=== PATIENT | male | born 1975 | race Hispanic/Latino ===

== ENCOUNTER 2019-10-13 16:44 | Emergency (ER) | payer OTHER, SELFPAY ==
[2019-10-14 12:12] LABS: SARS-CoV-2 MS2 Positive; SARS-CoV-2 N Gene Negative; SARS-CoV-2 S Gene Negative; SARS-CoV-2 by NAA Not Detected (NotDetected); SARS-CoV-2 orf1ab Negative
== END 2019-10-13 17:04 | disposition home or self-care (01) ==
LOC: ERS 16:44
DX: U07.1 COVID-19 (principal); E11.9 Type 2 diabetes mellitus without complications
CPT/HCPCS: 87635; 99283; U0003

== ENCOUNTER 2020-02-06 17:10 | Inpatient (IN) | payer SELFPAY ==
--- NOTE | 2020-02-06 17:59 | RAD ---
Portable frontal chest radiograph: 02/06/2020 COMPARISON: None available HISTORY: Cough with shortness of breath FINDINGS: There are patchy areas of groundglass opacity in the perihilar regions, the medial left bas e, and the lateral right upper lobe region. No focal consolidation or alveolar edema. IMPRESSION: Scattered areas of interstitial opacity with superimposed groundglass disease. Findings a re suspicious for atypical infectious pneumonitis, such as Covid 19.
[2020-02-06 18:00] LABS: #Basophils 0.1 thou/uL (0.0-0.2); #Lymphocytes 0.3 thou/uL (1.20-3.40); #Monocytes 0.2 thou/uL (0.11-0.59); #Neutrophils 5.9 thou/uL (1.40-6.50); %Basophils 1.1 % (0.0-1.0); %Eosinophils 0.1 % (0.0-10.0); %Lymphocytes 3.8 % (21.0-51.0); %Monocytes 3.4 % (0.0-10.0); %Neutrophils 91.4 % (42.0-75.0); Hemoglobin 16.2 g/dL (14.0-18.0); Mean Corpuscular Hemoglobin 32.5 pg (27.0-31.0); Mean Corpuscular Volume 95.7 fL (78.0-98.0); Mean Platelet Volume 9.3 fL (7.4-10.4); Platelet Count 188 thou/uL (130-400); RBC Distribution Width 11.6 % (11.5-14.5); Red Blood Cell (RBC) Count 4.99 mill/uL (4.70-6.10); White Blood Cell (WBC) Count 6.5 thou/uL (4.8-10.8)
[2020-02-06 18:22] LABS: ALT (SGPT) 36 U/L (8-55); AST (SGOT) 28 U/L (5-34); Albumin 3.5 g/dL (3.5-5.0); Alkaline Phosphatase 72 U/L (40-110); Anion Gap 15 mmol/L (10-20); BUN (Urea Nitrogen) 19 mg/dL (8.9-20.6); Bilirubin, Total 0.6 mg/dL (0.2-1.2); Calc. Creatinine Clearance 0 mL/min (70-130); Calcium 8.3 mg/dL (7.8-10.44); Carbon Dioxide 25 mmol/L (22-29); Chloride 102 mmol/L (98-107); Estimated GFR-MDRD Greater than 90; Globulin 3.7 g/dL (2.4-3.5); Glucose 307 mg/dL (70-105); Potassium 4.5 mmol/L (3.5-5.1); Protein, Total 7.2 g/dL (6.0-8.3); Sodium 137 mmol/L (136-145)
[2020-02-06] MEDS ORDERED: Ibuprofen 200 MG TAB ONE (19:10)
[2020-02-06] MEDS ORDERED: Acetaminophen 500 MG TAB ONE (19:10)
[2020-02-06] MEDS ORDERED: Acetaminophen 650 MG Suppository PR PRN (19:21)
[2020-02-06] MEDS ORDERED: Calcium Carbonate 500 MG ChewTAB PO PRN (19:21)
[2020-02-06] MEDS ORDERED: Ondansetron ODT 4 MG TAB PO PRN (19:21)
[2020-02-06] MEDS ORDERED: Ondansetron PF 4 MG/2 ML Vial IVP PRN (19:21)
[2020-02-06] MEDS ORDERED: Dexamethasone 10 MG/ML VIAL ONE (19:26)
--- NOTE | 2020-02-06 19:26 | PDOC.HHP ---
Hospitalist HPI - History of Present Illness cough History of Present Illness: Case of an 44y/o male with pmhx of DM who comes to hospital complaining of sob and cough. patient refers he was on his usual state of health until 2 weeks ago when he started with cough chills and general malaise. symptoms kept progressing and recently started with dyspnea. He states he produces some white phlegm occasionally. He states he had positive coronavirus in September, but that he completely recovered and had f/u negative results. patient denies any fever abdominal pain diarrhea or changes in smell, does refers food has a bland taste, has no know covid exposure. at the ed patient was found on respiratory failure with 02 sats in the 88s at [facility] with a cxr with an atypical patter concerning for covid 19 Hospitalist ROS - Review of Systems All other systems reviewed; all pertinent +/- noted in HPI/Subj Hospitalist History - Past Surgical History Past Surgical History: reports: no pertinent history - Family History Family History: reports: diabetes mellitus - Social History Smoking Status: Never smoker Alcohol: reports: Occassional Drugs: reports: none Living Situation: With Family - Exam General Appearance: NAD, awake alert Eye: PERRL, anicteric sclera ENT: normocephalic atraumatic, no oropharyngeal lesions Neck: supple, symmetric, no JVD, no thyromegaly Heart: RRR, no murmur, no gallops, no rubs Respiratory: CTAB, no wheezes, no rales, no ronchi, tachypneic Gastrointestinal: soft, non-tender, non-distended, normal bowel sounds Extremities: no cyanosis, no clubbing, no edema Skin: normal turgor, no lesions, no rashes Neurological: cranial nerve grossly intact, normal sensation to touch, no weakness Musculoskeletal: normal tone, normal strength, no muscle wasting Psychiatric: normal affect, normal behavior, A&O x 3 Hospitalist Results - Labs Result Diagrams: 02/06/20 17:49 02/06/20 17:49 Lab results: WBC 6.5 thou/uL (4.8-10.8) 02/06/20 17:49 Hgb 16.2 g/dL (14.0-18.0) 02/06/20 17:49 Hct 47.8 % (42.0-52.0) 02/06/20 17:49 MCV 95.7 fL (78.0-98.0) 02/06/20 17:49 Plt Count 188 thou/uL (130-400) 02/06/20 17:49 Neutrophils % 91.4 % (42.0-75.0) H 02/06/20 17:49 Sodium 137 mmol/L (136-145) 02/06/20 17:49 Potassium 4.5 mmol/L (3.5-5.1) 02/06/20 17:49 Chloride 102 mmol/L (98-107) 02/06/20 17:49 Carbon Dioxide 25 mmol/L (22-29) 02/06/20 17:49 BUN 19 mg/dL (8.9-20.6) 02/06/20 17:49 Creatinine 0.85 mg/dL (0.7-1.3) 02/06/20 17:49 Glucose 307 mg/dL (70-105) H 02/06/20 17:49 Calcium 8.3 mg/dL (7.8-10.44) 02/06/20 17:49 Total Bilirubin 0.6 mg/dL (0.2-1.2) 02/06/20 17:49 AST 28 U/L (5-34) 02/06/20 17:49 ALT 36 U/L (8-55) 02/06/20 17:49 Alkaline Phosphatase 72 U/L (40-110) 02/06/20 17:49 Troponin I Less than 0.010 ng/mL (< 0.028) 02/06/20 17:49 B-Natriuretic Peptide 48.4 pg/mL (0-100) 02/06/20 17:49 Serum Total Protein 7.2 g/dL (6.0-8.3) 02/06/20 17:49 Albumin 3.5 g/dL (3.5-5.0) 02/06/20 17:49 Hospitalist H&P A/P - Problem (1) Respiratory failure with hypoxia Code(s): J96.91 - RESPIRATORY FAILURE, UNSPECIFIED WITH HYPOXIA Status: Acute (2) Pneumonia due to COVID-19 virus Code(s): U07.1 - COVID-19; J12.89 - OTHER VIRAL PNEUMONIA Status: Acute (3) Diabetes Code(s): E11.9 - TYPE 2 DIABETES MELLITUS WITHOUT COMPLICATIONS Status: Acute - Plan Plan: 44y/o male with the state pmhx who presnte with symptoms concerning for covid 19 re- infection acute respiratory failure - 02 supplementation - likely due to atypical pneumonia possible covid 19 re infection covid 19 pneumonia - had covid 19 in september - cxr concerning for atypical pneumonia, including covid 19 - on rocephin + azithromycin - id consulted - decadron 6mg ivd - f/u cultures - f/u inflammation markers - dvt prophylaxis -isolation precautions - flu swab dm - uncontrolled - long acting insulin - acc+ ss
[2020-02-06] MEDS ORDERED: Dextrose 5% in Water 1,000 ML IV PRN (19:28)
[2020-02-06] MEDS ORDERED: Dextrose 50% Abboject 50 ML SYRINGE SLOW IVP PRN (19:28)
[2020-02-06] MEDS ORDERED: cefTRIAXone\\ROCEPHIN 1 GM in Sodium Chloride 0.9% 100 ML IVPB SCH (20:00)
[2020-02-06 20:45] LABS: SARS-CoV-2 NAA Rapid Test DETECTED (NotDetected)
[2020-02-06] MEDS ORDERED: Azithromycin 500 MG in Sodium Chloride 0.9% 250 ML 250 ML IVPB SCH ×2 (21:00→23:59)
[2020-02-07] MEDS: HumaLOG 300 UNITS/3 ML VIAL SC PRN ×5 (00:07→21:35)
[2020-02-07] MEDS: Insulin Glargine 10 UNITS in Pre-Filled Syringe SC SCH ×2 (00:07→21:34)
[2020-02-07 07:40] LABS: ALT (SGPT) 33 U/L (8-55); AST (SGOT) 23 U/L (5-34); Albumin 3.3 g/dL (3.5-5.0); Alkaline Phosphatase 70 U/L (40-110); Anion Gap 15 mmol/L (10-20); BUN (Urea Nitrogen) 20 mg/dL (8.9-20.6); Bilirubin, Total 0.5 mg/dL (0.2-1.2); CRP (Inflammatory) 6.27 mg/dL (= or < 0.5); Calc. Creatinine Clearance 119 mL/min (70-130); Calcium 8.4 mg/dL (7.8-10.44); Carbon Dioxide 24 mmol/L (22-29); Chloride 105 mmol/L (98-107); Estimated GFR-MDRD Greater than 90; Globulin 3.6 g/dL (2.4-3.5); Glucose 247 mg/dL (70-105); Potassium 4.4 mmol/L (3.5-5.1); Protein, Total 6.9 g/dL (6.0-8.3); Sodium 140 mmol/L (136-145)
[2020-02-07] MEDS: Enoxaparin Sodium 40 MG/0.4 ML SYRINGE SC SCH (08:55)
[2020-02-07] MEDS: Dexamethasone 4 mg/ml Vial SLOW IVP SCH (08:55)
[2020-02-07] MEDS: Acetaminophen 325 MG TAB PO PRN (08:56)
[2020-02-07] MEDS: Guaifenesin DM 100-10/5 ML UDCUP PO PRN ×4 (08:57→21:57)
[2020-02-07] MEDS ORDERED: Dexamethasone 6 MG in Sodium Chloride 0.9% 50 ML IVPB SCH (09:00)
[2020-02-07 09:35] LABS: Band 10 % (5-11); Hemoglobin 15.9 g/dL (14.0-18.0); Lymphocytes 3 % (21-51); MDiff Complete? YES; Mean Corpuscular HGB CONC 33.6 g/dL (32.0-36.0); Mean Corpuscular Volume 95.4 fL (78.0-98.0); Mean Platelet Volume 9.1 fL (7.4-10.4); Monocytes 2 % (0-10); Neutrophil 84 % (42-75); Platelet Count 187 thou/uL (130-400); Platelet Morphology Comment Appears Adequate; RBC Distribution Width 11.6 % (11.5-14.5); RBC Morphology Normal; Reactive Lymphocytes 1 % (0-10); Red Blood Cell (RBC) Count 4.96 mill/uL (4.70-6.10); White Blood Cell (WBC) Count 15.6 thou/uL (4.8-10.8)
--- NOTE | 2020-02-07 20:49 | CON ---
DATE OF CONSULTATION: 02/07/2020 REASON FOR CONSULTATION: COVID pneumonia. REASON FOR CONSULTATION: A 44-year-old with history of type 2 diabetes, who has had started coughing about 14 days ago, but he is really dyspneic for the past week with worsening cough. No headaches. No hemoptysis. No vomiting. No chest pain. No abdominal pain or diarrhea. No genitourinary symptoms. No joint symptoms. PAST MEDICAL HISTORY: Type 2 diabetes. PAST SURGICAL HISTORY: Negative. 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 No smoking history. ALLERGIES: NONE. CURRENT MEDICATIONS: 1. Azithromycin. 2. Rocephin. 3. Decadron. PHYSICAL EXAMINATION: VITAL SIGNS: He has been afebrile. He is now tachypneic 24 to 26 per minute, O2 saturations are 83 with 2 L nasal cannula. I went up the flow to 5 L and he went up to 86 and 87 max. GENERAL: He appears uncomfortable at rest. SKIN: No skin lesions. Peripheral IV access. He is voiding in the toilet and has a hard time going to the toilet because of dyspnea and cough. No lymphadenopathy. HEENT: Ocular movements conjugate. Oral cavity normal. NECK: Supple. LUNGS: With scattered inspiratory crackles up to half of right and left hemithorax. No wheezing. HEART: S1 and S2. Regular rate. No S3 or S4. ABDOMEN: Soft, not distended or tender. No ascites. No bladder distention. EXTREMITIES: No joint inflammatory activity. NEURO: Nonfocal. LABORATORY DATA: White cell count is up 15.6, hemoglobin 15, and platelets 187 with 10% bands. D-dimer 0.32. Ferritin 442. CRP 6.27. Albumin 3.3. Chest x-ray, diffuse bilateral infiltrates, typical of COVID. ASSESSMENT AND PLAN: Diabetes type 2 with moderate to severe COVID pneumonia. The patient needs to have probably high-flow oxygen administered. We will add remdesivir to his regimen. Continue Decadron and Lovenox prophylactic dose. Discontinue Rocephin and azithromycin. Monitor markers daily. Job ID: [id number]
[2020-02-07] MEDS ORDERED: REMDESIVIR (EUA) 200 MG in Sodium Chloride 0.9% 250 ML 210 ML IV SCH (21:00)
[2020-02-07] MEDS: HYDROcodone/Acetaminophen 5/325 mg Tablet PO PRN (21:33)
--- NOTE | 2020-02-07 21:38 | PDOC.HOSPP ---
- Subjective Encounter Date: 02/07/20 Subjective: Patient was seen and examined in bed. He had mild shortness of breath and occasional cough. Denied any chest pain or abdominal pain. - Objective Vital Signs & Weight: Vital Signs (12 hours) Temp Pulse Resp BP Pulse Ox 02/07/20 20:00 99.8 F H 66 18 117/68 96 02/07/20 15:50 98.6 F 61 24 H 119/69 96 02/07/20 12:35 98.6 F 71 21 H 134/72 100 Weight Admit Weight 146 lb 8 oz Weight 146 lb 8 oz I&O: 02/06/20 02/07/20 02/08/20 06:59 06:59 06:59 Intake Total 400 980 Balance 400 980 Result Diagrams: 02/07/20 07:08 02/07/20 07:08 Additional Labs: Accuchecks 02/07/20 02/07/20 02/07/20 21:18 17:20 11:45 POC Glucose 265 H 283 H 374 H 02/07/20 02/06/20 07:37 22:17 POC Glucose 274 H 318 H Hospitalist ROS - Medication Medications: Active Medications Generic Name Dose Route Start Last Admin Trade Name Freq PRN Reason Stop Dose Admin Acetaminophen 650 mg 02/06/20 19:21 02/07/20 08:56 Acetaminophen 325 Mg Tab PO 650 mg Q4H PRN Administration Headache/Fever/Mild Pain (1-3) Hydrocodone Bitart/Acetaminophen 1 tab 02/06/20 19:21 02/07/20 21:33 Hydrocodone/Acetaminophen 5/325 Mg Tablet PO 1 tab Q4H PRN Administration Moderate Pain (4-6) Dexamethasone 6 mg 02/07/20 09:00 02/07/20 08:55 Dexamethasone 4 Mg/Ml Vial SLOW IVP 6 mg DAILY BEATA Administration Enoxaparin Sodium 40 mg 02/07/20 09:00 02/07/20 08:55 Enoxaparin Sodium 40 Mg/0.4 Ml Syringe SC 40 mg 0900 BEATA Administration Guaifenesin/Dextromethorphan 15 ml 02/06/20 19:21 02/07/20 17:40 Guaifenesin Dm 100-10/5 Ml Udcup PO 15 ml Q4H PRN Administration Cough Insulin Glargine 10 units/ 0.1 mls @ 0 mls/hr 02/06/20 21:00 02/07/20 21:34 Miscellaneous Medication SC 0.1 mls HS BEATA Administration Remdesivir 200 mg/ Sodium 250 mls @ 250 mls/hr 02/07/20 21:00 02/07/20 21:33 Chloride IV 02/07/20 23:59 250 mls NOW BEATA Administration Insulin Human Lispro 0 units 02/06/20 19:28 02/07/20 17:42 Humalog 300 Units/3 Ml Vial SC 4 unit .MILD SLIDING SCALE PRN Administration Mild Correctional Scale Insulin Human Lispro 0 units 02/06/20 23:50 02/07/20 21:35 Humalog 300 Units/3 Ml Vial SC 3 unit .BEDTIME SLIDING SC PRN Administration Bedtime Correctional Scale - Exam General Appearance: awake alert General - other findings: Mild distress Heart: RRR, no murmur, no gallops, no rubs Respiratory - other findings: Occasional crackles bilaterally Gastrointestinal: soft, non-tender, non-distended, normal bowel sounds Extremities: no cyanosis, no clubbing, no edema Neurological: cranial nerve grossly intact, no focal deficits Psychiatric: normal affect, A&O x 3 Hosp A/P - Plan 44-year-old male patient with a history of type 2 diabetes who presents on account of worsening dyspnea for about a week. Initial evaluation shows chest x-ray suggestive of Covid with Covid test eventually turning positive. He notes having had 1 previous episode of Covid. Acute hypoxic respiratory failure Secondary to Covid pneumoniarecurrence Oxygen therapy as needed. Close monitoring. Pulmonology consult if deteriorates further. Pneumonia due to Covid Started on Lovenox and Decadronwe will continue Monitor ferritin, CRP daily ID following Diabetes mellitus No recent A1c on file Blood sugar normal control We will check A1c Monitor blood glucose Correctional dosing insulin for now. DVT prophylaxis Lovenox CODE STATUSfull code
[2020-02-08] MEDS: Guaifenesin DM 100-10/5 ML UDCUP PO PRN ×5 (02:33→21:12)
[2020-02-08 05:41] LABS: Hemoglobin A1c 10.9 % (4.0-6.0)
[2020-02-08 05:57] LABS: ALT (SGPT) 24 U/L (8-55); AST (SGOT) 22 U/L (5-34); Albumin 3.1 g/dL (3.5-5.0); Alkaline Phosphatase 72 U/L (40-110); Anion Gap 12 mmol/L (10-20); BUN (Urea Nitrogen) 17 mg/dL (8.9-20.6); Bilirubin, Total 0.7 mg/dL (0.2-1.2); CRP (Inflammatory) 8.59 mg/dL (= or < 0.5); Calc. Creatinine Clearance 113 mL/min (70-130); Calcium 8.4 mg/dL (7.8-10.44); Carbon Dioxide 28 mmol/L (22-29); Chloride 104 mmol/L (98-107); Estimated GFR-MDRD Greater than 90; Globulin 3.6 g/dL (2.4-3.5); Glucose 294 mg/dL (70-105); Potassium 4.4 mmol/L (3.5-5.1); Protein, Total 6.7 g/dL (6.0-8.3); Sodium 140 mmol/L (136-145)
[2020-02-08 06:00] LABS: Band 7 % (5-11); Hemoglobin 15.2 g/dL (14.0-18.0); Lymphocytes 9 % (21-51); MDiff Complete? YES; Mean Corpuscular HGB CONC 32.8 g/dL (32.0-36.0); Mean Corpuscular Hemoglobin 31.4 pg (27.0-31.0); Mean Platelet Volume 9.6 fL (7.4-10.4); Monocytes 5 % (0-10); Neutrophil 79 % (42-75); Platelet Count 210 thou/uL (130-400); RBC Distribution Width 11.6 % (11.5-14.5); Red Blood Cell (RBC) Count 4.84 mill/uL (4.70-6.10); White Blood Cell (WBC) Count 14.4 thou/uL (4.8-10.8)
[2020-02-08] MEDS: HumaLOG 300 UNITS/3 ML VIAL SC PRN ×4 (06:02→21:13)
[2020-02-08] MEDS: Dexamethasone 4 mg/ml Vial SLOW IVP SCH (07:26)
[2020-02-08] MEDS: Enoxaparin Sodium 40 MG/0.4 ML SYRINGE SC SCH (07:26)
[2020-02-08] MEDS: Acetaminophen 325 MG TAB PO PRN (07:58)
--- NOTE | 2020-02-08 15:45 | PDOC.HOSPP ---
- Subjective Encounter Date: 02/08/20 Subjective: Patient was seen and examined in bed. He is laying comfortably on 5 L oxygen. He has had intermittent coughing spells but however no chest pain. No significant events overnight. - Objective Vital Signs & Weight: Vital Signs (12 hours) Temp Pulse Resp BP BP Pulse Ox 02/08/20 11:55 98.1 F 58 L 26 H 120/71 98 02/08/20 07:26 98.5 F 56 L 23 H 115/70 94 L 02/08/20 03:49 98.6 F 56 L 18 114/70 94 L Weight Admit Weight 146 lb 8 oz Weight 144 lb 14.4 oz I&O: 02/07/20 02/08/20 02/09/20 06:59 06:59 06:59 Intake Total 400 1350 Output Total 700 Balance 400 650 Result Diagrams: 02/08/20 05:15 02/08/20 05:15 Additional Labs: Accuchecks 02/08/20 02/08/20 02/07/20 11:21 05:42 21:18 POC Glucose 274 H 284 H 265 H 02/07/20 17:20 POC Glucose 283 H Hospitalist ROS - Medication Medications: Active Medications Generic Name Dose Route Start Last Admin Trade Name Freq PRN Reason Stop Dose Admin Acetaminophen 650 mg 02/06/20 19:21 02/08/20 07:58 Acetaminophen 325 Mg Tab PO 650 mg Q4H PRN Administration Headache/Fever/Mild Pain (1-3) Hydrocodone Bitart/Acetaminophen 1 tab 02/06/20 19:21 02/07/20 21:33 Hydrocodone/Acetaminophen 5/325 Mg Tablet PO 1 tab Q4H PRN Administration Moderate Pain (4-6) Dexamethasone 6 mg 02/07/20 09:00 02/08/20 07:26 Dexamethasone 4 Mg/Ml Vial SLOW IVP 6 mg DAILY BEATA Administration Enoxaparin Sodium 40 mg 02/07/20 09:00 02/08/20 07:26 Enoxaparin Sodium 40 Mg/0.4 Ml Syringe SC 40 mg 0900 BEATA Administration Guaifenesin/Dextromethorphan 15 ml 02/06/20 19:21 02/08/20 11:23 Guaifenesin Dm 100-10/5 Ml Udcup PO 15 ml Q4H PRN Administration Cough Insulin Glargine 10 units/ 0.1 mls @ 0 mls/hr 02/06/20 21:00 02/07/20 21:34 Miscellaneous Medication SC 0.1 mls HS BEATA Administration Insulin Human Lispro 0 units 02/06/20 19:28 02/08/20 11:24 Humalog 300 Units/3 Ml Vial SC 4 unit .MILD SLIDING SCALE PRN Administration Mild Correctional Scale Insulin Human Lispro 0 units 02/06/20 23:50 02/07/20 21:35 Humalog 300 Units/3 Ml Vial SC 3 unit .BEDTIME SLIDING SC PRN Administration Bedtime Correctional Scale - Exam General Appearance: awake alert Heart: RRR, no murmur, no gallops, no rubs, normal peripheral pulses Respiratory - other findings: Occasional wheezing bilaterally. On 5 L oxygen Gastrointestinal: soft, non-tender, non-distended, normal bowel sounds Extremities: no cyanosis, no clubbing, no edema Neurological: cranial nerve grossly intact, no focal deficits Psychiatric: normal affect, A&O x 3 Hosp A/P - Plan 44-year-old male patient with a history of type 2 diabetes who presents on account of worsening dyspnea for about a week. Initial evaluation shows chest x-ray suggestive of Covid with Covid test eventually turning positive. He notes having had 1 previous episode of Covid. Acute hypoxic respiratory failure Secondary to Covid pneumoniarecurrence Currently stable on 5 L of oxygen Close monitoring. Pulmonology consult if deteriorates further. Pneumonia due to Covid Started on Lovenox and Decadronwe will continue Monitor ferritin, CRP daily ID following Diabetes mellitus A1c 10.9 Monitor blood glucose Currently on glargine 15 units Correctional dosing insulin for now. DVT prophylaxis Lovenox CODE STATUSfull code
[2020-02-08] MEDS: REMDESIVIR (EUA) 100 MG in Sodium Chloride 0.9% 250 ML 230 ML IV SCH (21:11)
[2020-02-08] MEDS: Insulin Glargine 15 UNITS in Pre-Filled Syringe SC SCH (21:11)
[2020-02-09] MEDS: Acetaminophen 325 MG TAB PO PRN ×2 (01:46→12:20)
[2020-02-09 05:26] LABS: #Lymphocytes 1.7 thou/uL (1.20-3.40); #Monocytes 0.6 thou/uL (0.11-0.59); #Neutrophils 5.1 thou/uL (1.40-6.50); %Basophils 0.3 % (0.0-1.0); %Eosinophils 0.2 % (0.0-10.0); %Lymphocytes 22.7 % (21.0-51.0); %Monocytes 8.2 % (0.0-10.0); %Neutrophils 68.6 % (42.0-75.0); Hemoglobin 15.3 g/dL (14.0-18.0); Mean Corpuscular HGB CONC 33.8 g/dL (32.0-36.0); Mean Corpuscular Hemoglobin 32.1 pg (27.0-31.0); Mean Corpuscular Volume 95.1 fL (78.0-98.0); Mean Platelet Volume 9.2 fL (7.4-10.4); Platelet Count 241 thou/uL (130-400); RBC Distribution Width 11.5 % (11.5-14.5); Red Blood Cell (RBC) Count 4.75 mill/uL (4.70-6.10); White Blood Cell (WBC) Count 7.5 thou/uL (4.8-10.8)
[2020-02-09] MEDS: Guaifenesin DM 100-10/5 ML UDCUP PO PRN ×2 (05:50→17:56)
[2020-02-09 05:54] LABS: ALT (SGPT) 26 U/L (8-55); AST (SGOT) 21 U/L (5-34); Alkaline Phosphatase 62 U/L (40-110); Anion Gap 14 mmol/L (10-20); BUN (Urea Nitrogen) 21 mg/dL (8.9-20.6); Bilirubin, Total 0.6 mg/dL (0.2-1.2); Calc. Creatinine Clearance 132 mL/min (70-130); Calcium 8.4 mg/dL (7.8-10.44); Carbon Dioxide 26 mmol/L (22-29); Chloride 103 mmol/L (98-107); Estimated GFR-MDRD Greater than 90; Globulin 3.5 g/dL (2.4-3.5); Glucose 244 mg/dL (70-105); Potassium 3.9 mmol/L (3.5-5.1); Protein, Total 6.5 g/dL (6.0-8.3); Sodium 139 mmol/L (136-145)
[2020-02-09] MEDS: HumaLOG 300 UNITS/3 ML VIAL SC PRN ×2 (06:37→17:55)
[2020-02-09] MEDS: Enoxaparin Sodium 40 MG/0.4 ML SYRINGE SC SCH (08:33)
[2020-02-09] MEDS: Dexamethasone 4 mg/ml Vial SLOW IVP SCH (08:33)
--- NOTE | 2020-02-09 12:15 | PDOC.HOSPP ---
- Subjective Encounter Date: 02/09/20 Encounter Time: 11:45 Subjective: feels better, gets short winded to ambulate in room is on nasal canula - Objective Vital Signs & Weight: Vital Signs (12 hours) Temp Pulse Resp BP BP BP Pulse Ox 02/09/20 10:58 56 L 18 130/76 100 02/09/20 08:45 98.7 F 55 L 20 117/68 100 02/09/20 03:57 98.7 F 50 L 18 128/75 97 Weight Admit Weight 146 lb 8 oz Weight 145 lb 1.6 oz I&O: 02/08/20 02/09/20 02/10/20 06:59 06:59 06:59 Intake Total 1350 1170 Output Total 700 350 Balance 650 820 Result Diagrams: 02/09/20 05:15 02/09/20 05:15 Additional Labs: Accuchecks 02/09/20 02/08/20 06:05 20:50 POC Glucose 273 H 342 H Hospitalist ROS - Medication Medications: Active Medications Generic Name Dose Route Start Last Admin Trade Name Freq PRN Reason Stop Dose Admin Acetaminophen 650 mg 02/06/20 19:21 02/09/20 01:46 Acetaminophen 325 Mg Tab PO 650 mg Q4H PRN Administration Headache/Fever/Mild Pain (1-3) Hydrocodone Bitart/Acetaminophen 1 tab 02/06/20 19:21 02/07/20 21:33 Hydrocodone/Acetaminophen 5/325 Mg Tablet PO 1 tab Q4H PRN Administration Moderate Pain (4-6) Dexamethasone 6 mg 02/07/20 09:00 02/09/20 08:33 Dexamethasone 4 Mg/Ml Vial SLOW IVP 6 mg DAILY BEATA Administration Enoxaparin Sodium 40 mg 02/07/20 09:00 02/09/20 08:33 Enoxaparin Sodium 40 Mg/0.4 Ml Syringe SC 40 mg 0900 BEATA Administration Guaifenesin/Dextromethorphan 15 ml 02/06/20 19:21 02/09/20 05:50 Guaifenesin Dm 100-10/5 Ml Udcup PO 15 ml Q4H PRN Administration Cough Remdesivir 100 mg/ Sodium 250 mls @ 250 mls/hr 02/08/20 21:00 02/08/20 21:11 Chloride IV 11/28/20 21:59 250 mls 2100 BEATA Administration Insulin Glargine 15 units/ 0.15 mls @ 0 mls/hr 02/08/20 21:00 02/08/20 21:11 Miscellaneous Medication SC 0.15 mls HS BEATA Administration Insulin Human Lispro 0 units 02/06/20 19:28 02/09/20 06:37 Humalog 300 Units/3 Ml Vial SC 4 unit .MILD SLIDING SCALE PRN Administration Mild Correctional Scale Insulin Human Lispro 0 units 02/06/20 23:50 02/08/20 21:13 Humalog 300 Units/3 Ml Vial SC 4 unit .BEDTIME SLIDING SC PRN Administration Bedtime Correctional Scale - Exam General Appearance: awake alert Eye: PERRL, anicteric sclera ENT: no oropharyngeal lesions, moist mucosa Neck: supple, no JVD Heart: RRR, no murmur Respiratory: no wheezes, no rales, rhonchi Gastrointestinal: soft, non-tender, non-distended, normal bowel sounds Extremities: no cyanosis, no edema Neurological: cranial nerve grossly intact, no focal deficits Psychiatric: normal affect, A&O x 3 Hosp A/P (1) Respiratory failure with hypoxia Code(s): J96.91 - RESPIRATORY FAILURE, UNSPECIFIED WITH HYPOXIA Status: Acute Qualifiers: Chronicity: acute Qualified Code(s): J96.01 - Acute respiratory failure with hypoxia (2) Pneumonia due to COVID-19 virus Code(s): U07.1 - COVID-19; J12.89 - OTHER VIRAL PNEUMONIA Status: Acute (3) Diabetes Code(s): E11.9 - TYPE 2 DIABETES MELLITUS WITHOUT COMPLICATIONS Status: Chronic Qualifiers: Diabetes mellitus type: type 2 Diabetes mellitus shelter insulin use: with 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
[2020-02-09] MEDS: REMDESIVIR (EUA) 100 MG in Sodium Chloride 0.9% 250 ML 230 ML IV SCH (20:30)
[2020-02-09] MEDS: Insulin Glargine 15 UNITS in Pre-Filled Syringe SC SCH (20:38)
[2020-02-09] MEDS: HYDROcodone/Acetaminophen 5/325 mg Tablet PO PRN (23:29)
[2020-02-10 05:20] LABS: #Monocytes 0.5 thou/uL (0.11-0.59); %Eosinophils 0.6 % (0.0-10.0); %Lymphocytes 26.7 % (21.0-51.0); %Monocytes 6.9 % (0.0-10.0); %Neutrophils 65.8 % (42.0-75.0); Hemoglobin 15.7 g/dL (14.0-18.0); Mean Corpuscular HGB CONC 32.4 g/dL (32.0-36.0); Mean Corpuscular Hemoglobin 30.5 pg (27.0-31.0); Mean Platelet Volume 9.4 fL (7.4-10.4); Platelet Count 286 thou/uL (130-400); RBC Distribution Width 11.4 % (11.5-14.5); Red Blood Cell (RBC) Count 5.16 mill/uL (4.70-6.10); White Blood Cell (WBC) Count 7.6 thou/uL (4.8-10.8)
[2020-02-10 05:47] LABS: ALT (SGPT) 40 U/L (8-55); AST (SGOT) 27 U/L (5-34); Alkaline Phosphatase 65 U/L (40-110); Anion Gap 11 mmol/L (10-20); BUN (Urea Nitrogen) 20 mg/dL (8.9-20.6); Bilirubin, Total 0.7 mg/dL (0.2-1.2); Calc. Creatinine Clearance 125 mL/min (70-130); Calcium 8.4 mg/dL (7.8-10.44); Carbon Dioxide 27 mmol/L (22-29); Chloride 101 mmol/L (98-107); Estimated GFR-MDRD Greater than 90; Globulin 3.6 g/dL (2.4-3.5); Glucose 229 mg/dL (70-105); Protein, Total 6.6 g/dL (6.0-8.3); Sodium 135 mmol/L (136-145)
[2020-02-10] MEDS: Enoxaparin Sodium 40 MG/0.4 ML SYRINGE SC SCH (07:44)
[2020-02-10] MEDS: Dexamethasone 4 mg/ml Vial SLOW IVP SCH (07:44)
[2020-02-10 12:03] VITALS: BMI 23.4
[2020-02-10] MEDS: HumaLOG 300 UNITS/3 ML VIAL SC PRN ×3 (12:04→21:05)
--- NOTE | 2020-02-10 15:00 | PDOC.HOSPP ---
- Subjective Encounter Date: 02/10/20 - Objective Vital Signs & Weight: Vital Signs (12 hours) Temp Pulse Resp BP Pulse Ox 02/10/20 11:04 98.3 F 83 16 102/61 98 02/10/20 08:39 98.7 F 77 20 107/67 94 L 02/10/20 03:10 98.0 F 55 L 18 122/79 96 Weight Admit Weight 146 lb 8 oz Weight 145 lb 1.6 oz I&O: 02/09/20 02/10/20 02/11/20 06:59 06:59 06:59 Intake Total 1170 480 Output Total 350 Balance 820 480 Result Diagrams: 02/10/20 05:11 02/10/20 05:11 Additional Labs: Accuchecks 02/10/20 02/10/20 02/09/20 10:14 05:38 16:13 POC Glucose 267 H 210 H 295 H Hospitalist ROS - Medication Medications: Active Medications Generic Name Dose Route Start Last Admin Trade Name Freq PRN Reason Stop Dose Admin Acetaminophen 650 mg 02/06/20 19:21 02/09/20 12:20 Acetaminophen 325 Mg Tab PO 650 mg Q4H PRN Administration Headache/Fever/Mild Pain (1-3) Hydrocodone Bitart/Acetaminophen 1 tab 02/06/20 19:21 02/09/20 23:29 Hydrocodone/Acetaminophen 5/325 Mg Tablet PO 1 tab Q4H PRN Administration Moderate Pain (4-6) Dexamethasone 6 mg 02/07/20 09:00 02/10/20 07:44 Dexamethasone 4 Mg/Ml Vial SLOW IVP 6 mg DAILY BEATA Administration Enoxaparin Sodium 40 mg 02/07/20 09:00 02/10/20 07:44 Enoxaparin Sodium 40 Mg/0.4 Ml Syringe SC 40 mg 0900 BEATA Administration Guaifenesin/Dextromethorphan 15 ml 02/06/20 19:21 02/09/20 17:56 Guaifenesin Dm 100-10/5 Ml Udcup PO 15 ml Q4H PRN Administration Cough Remdesivir 100 mg/ Sodium 250 mls @ 250 mls/hr 02/08/20 21:00 02/09/20 20:30 Chloride IV 02/11/20 21:59 250 mls 2100 BEATA Administration Insulin Glargine 15 units/ 0.15 mls @ 0 mls/hr 02/08/20 21:00 02/09/20 20:38 Miscellaneous Medication SC 0.15 mls HS BEATA Administration Insulin Human Lispro 0 units 02/06/20 19:28 02/10/20 12:04 Humalog 300 Units/3 Ml Vial SC 4 unit .MILD SLIDING SCALE PRN Administration Mild Correctional Scale Insulin Human Lispro 0 units 02/06/20 23:50 02/08/20 21:13 Humalog 300 Units/3 Ml Vial SC 4 unit .BEDTIME SLIDING SC PRN Administration Bedtime Correctional Scale - Exam General Appearance: awake alert ENT: normocephalic atraumatic Neck: supple, no JVD Heart: RRR Respiratory: normal chest expansion, no tachypnea Gastrointestinal: soft Extremities: no cyanosis, no clubbing Hosp A/P - Plan 02/08: 44-year-old male patient with a history of type 2 diabetes who presents on account of worsening dyspnea for about a week. Initial evaluation shows chest x-ray suggestive of Covid with Covid test eventually turning positive. He notes having had 1 previous episode of Covid. Acute hypoxic respiratory failure Secondary to Covid pneumoniarecurrence Currently stable on 5 L of oxygen Close monitoring. Pulmonology consult if deteriorates further. Pneumonia due to Covid Started on Lovenox and Decadronwe will continue Monitor ferritin, CRP daily ID following Diabetes mellitus A1c 10.9 Monitor blood glucose Currently on glargine 15 units Correctional dosing insulin for now. DVT prophylaxis Lovenox CODE STATUSfull code 02/09: The patient denies any new complaints today. He saturating well on supplemental oxygen. Continue dexamethasone and remdesivir. Continue Lovenox. Monitor LFTs daily.
[2020-02-10] MEDS: REMDESIVIR (EUA) 100 MG in Sodium Chloride 0.9% 250 ML 230 ML IV SCH (20:06)
[2020-02-10] MEDS: Insulin Glargine 15 UNITS in Pre-Filled Syringe SC SCH (20:06)
[2020-02-11 05:19] LABS: #Eosinphils 0.1 thou/uL (0.0-0.7); #Lymphocytes 2.1 thou/uL (1.20-3.40); #Monocytes 0.6 thou/uL (0.11-0.59); #Neutrophils 3.8 thou/uL (1.40-6.50); %Basophils 0.4 % (0.0-1.0); %Eosinophils 1.8 % (0.0-10.0); %Lymphocytes 31.7 % (21.0-51.0); %Monocytes 9.1 % (0.0-10.0); %Neutrophils 57.2 % (42.0-75.0); Hemoglobin 14.8 g/dL (14.0-18.0); Mean Corpuscular HGB CONC 33.6 g/dL (32.0-36.0); Mean Corpuscular Hemoglobin 31.6 pg (27.0-31.0); Mean Platelet Volume 9.3 fL (7.4-10.4); Platelet Count 300 thou/uL (130-400); RBC Distribution Width 11.4 % (11.5-14.5); Red Blood Cell (RBC) Count 4.68 mill/uL (4.70-6.10); White Blood Cell (WBC) Count 6.7 thou/uL (4.8-10.8)
[2020-02-11 05:46] LABS: ALT (SGPT) 53 U/L (8-55); AST (SGOT) 37 U/L (5-34); Albumin 2.9 g/dL (3.5-5.0); Alkaline Phosphatase 59 U/L (40-110); Anion Gap 13 mmol/L (10-20); BUN (Urea Nitrogen) 19 mg/dL (8.9-20.6); Bilirubin, Total 0.8 mg/dL (0.2-1.2); Calc. Creatinine Clearance 121 mL/min (70-130); Calcium 8.1 mg/dL (7.8-10.44); Carbon Dioxide 26 mmol/L (22-29); Chloride 101 mmol/L (98-107); Estimated GFR-MDRD Greater than 90; Globulin 3.2 g/dL (2.4-3.5); Glucose 198 mg/dL (70-105); Potassium 3.6 mmol/L (3.5-5.1); Protein, Total 6.1 g/dL (6.0-8.3); Sodium 136 mmol/L (136-145)
[2020-02-11] MEDS: HumaLOG 300 UNITS/3 ML VIAL SC PRN ×3 (06:02→18:04)
[2020-02-11] MEDS: Dexamethasone 4 mg/ml Vial SLOW IVP SCH (07:55)
[2020-02-11] MEDS: Enoxaparin Sodium 40 MG/0.4 ML SYRINGE SC SCH (07:55)
[2020-02-11] MEDS ORDERED: Dextrose 50% Abboject 50 ML SYRINGE SLOW IVP PRN (13:34)
[2020-02-11] MEDS ORDERED: Dextrose 5% in Water 1,000 ML IV PRN (13:34)
--- NOTE | 2020-02-11 13:37 | PDOC.HOSPP ---
- Subjective Encounter Date: 02/11/20 - Objective Vital Signs & Weight: Vital Signs (12 hours) Temp Pulse Resp BP BP Pulse Ox 02/11/20 12:00 98.3 F 72 20 109/61 97 02/11/20 08:00 98.9 F 60 18 104/63 97 02/11/20 02:55 98.2 F 57 L 18 105/65 99 Weight Admit Weight 146 lb 8 oz Weight 145 lb 1.6 oz I&O: 02/10/20 02/11/20 02/12/20 06:59 06:59 06:59 Intake Total 1210 Output Total 0 Balance 1210 Result Diagrams: 02/11/20 04:56 02/11/20 04:56 Additional Labs: Accuchecks 02/11/20 02/10/20 02/10/20 11:56 20:19 16:23 POC Glucose 352 H 384 H 403 H Hospitalist ROS - Medication Medications: Active Medications Generic Name Dose Route Start Last Admin Trade Name Freq PRN Reason Stop Dose Admin Acetaminophen 650 mg 02/06/20 19:21 02/09/20 12:20 Acetaminophen 325 Mg Tab PO 650 mg Q4H PRN Administration Headache/Fever/Mild Pain (1-3) Hydrocodone Bitart/Acetaminophen 1 tab 02/06/20 19:21 02/09/20 23:29 Hydrocodone/Acetaminophen 5/325 Mg Tablet PO 1 tab Q4H PRN Administration Moderate Pain (4-6) Dexamethasone 6 mg 02/07/20 09:00 02/11/20 07:55 Dexamethasone 4 Mg/Ml Vial SLOW IVP 6 mg DAILY BEATA Administration Enoxaparin Sodium 40 mg 02/07/20 09:00 02/11/20 07:55 Enoxaparin Sodium 40 Mg/0.4 Ml Syringe SC 40 mg 0900 BEATA Administration Guaifenesin/Dextromethorphan 15 ml 02/06/20 19:21 02/09/20 17:56 Guaifenesin Dm 100-10/5 Ml Udcup PO 15 ml Q4H PRN Administration Cough Remdesivir 100 mg/ Sodium 250 mls @ 250 mls/hr 02/08/20 21:00 02/10/20 20:06 Chloride IV 02/11/20 21:59 250 mls 2100 BEATA Administration Insulin Glargine 15 units/ 0.15 mls @ 0 mls/hr 02/08/20 21:00 02/10/20 20:06 Miscellaneous Medication SC 0.15 mls HS BEATA Administration - Exam General Appearance: awake alert ENT: normocephalic atraumatic Neck: supple, no JVD Heart: RRR Respiratory: normal chest expansion, no tachypnea Gastrointestinal: soft Neurological: cranial nerve grossly intact Hosp A/P - Plan 02/08: 44-year-old male patient with a history of type 2 diabetes who presents on account of worsening dyspnea for about a week. Initial evaluation shows chest x-ray suggestive of Covid with Covid test eventually turning positive. He notes having had 1 previous episode of Covid. Acute hypoxic respiratory failure Secondary to Covid pneumoniarecurrence Currently stable on 5 L of oxygen Close monitoring. Pulmonology consult if deteriorates further. Pneumonia due to Covid Started on Lovenox and Decadronwe will continue Monitor ferritin, CRP daily ID following Diabetes mellitus A1c 10.9 Monitor blood glucose Currently on glargine 15 units Correctional dosing insulin for now. DVT prophylaxis Lovenox CODE STATUSfull code 02/09: The patient denies any new complaints today. He saturating well on supplemental oxygen. Continue dexamethasone and remdesivir. Continue Lovenox. Monitor LFTs daily. 02/10: The patient is currently on 3 L of oxygen. He saturating well. Continue dexamethasone and remdesivir. Increase sliding scale to aggressive and increase nightly Lantus to 20 units.
[2020-02-11] MEDS: Insulin Glargine 20 UNITS in Pre-Filled Syringe SC SCH (21:47)
[2020-02-11] MEDS: REMDESIVIR (EUA) 100 MG in Sodium Chloride 0.9% 250 ML 230 ML IV SCH (21:47)
[2020-02-12 05:52] LABS: ALT (SGPT) 83 U/L (8-55); AST (SGOT) 53 U/L (5-34); Albumin 2.9 g/dL (3.5-5.0); Alkaline Phosphatase 59 U/L (40-110); Anion Gap 12 mmol/L (10-20); BUN (Urea Nitrogen) 16 mg/dL (8.9-20.6); Bilirubin, Total 0.9 mg/dL (0.2-1.2); CRP (Inflammatory) 1.25 mg/dL (= or < 0.5); Calc. Creatinine Clearance 117 mL/min (70-130); Carbon Dioxide 24 mmol/L (22-29); Chloride 101 mmol/L (98-107); Estimated GFR-MDRD Greater than 90; Globulin 3.1 g/dL (2.4-3.5); Glucose 204 mg/dL (70-105); Potassium 3.9 mmol/L (3.5-5.1); Sodium 133 mmol/L (136-145)
[2020-02-12] MEDS: HumaLOG 300 UNITS/3 ML VIAL SC PRN ×4 (06:27→21:05)
[2020-02-12] MEDS: Dexamethasone 4 mg/ml Vial SLOW IVP SCH (09:26)
[2020-02-12] MEDS: Enoxaparin Sodium 40 MG/0.4 ML SYRINGE SC SCH (09:27)
--- NOTE | 2020-02-12 14:49 | PDOC.HOSPP ---
- Subjective Encounter Date: 02/12/20 - Objective Vital Signs & Weight: Vital Signs (12 hours) Temp Pulse Resp BP BP Pulse Ox 02/12/20 13:01 98 02/12/20 11:21 98.0 F 63 18 110/67 100 02/12/20 09:35 98.6 F 72 24 H 100/58 L 95 02/12/20 03:42 98.2 F 52 L 16 112/92 H 98 Weight Admit Weight 146 lb 8 oz Weight 145 lb 1.6 oz I&O: 02/11/20 02/12/20 02/13/20 06:59 06:59 06:59 Intake Total 1210 240 Output Total 0 275 Balance 1210 -35 Result Diagrams: 02/11/20 04:56 02/12/20 05:07 Additional Labs: Accuchecks 02/12/20 02/11/20 11:19 17:24 POC Glucose 318 H 264 H Hospitalist ROS - Medication Medications: Active Medications Generic Name Dose Route Start Last Admin Trade Name Freq PRN Reason Stop Dose Admin Acetaminophen 650 mg 02/06/20 19:21 02/09/20 12:20 Acetaminophen 325 Mg Tab PO 650 mg Q4H PRN Administration Headache/Fever/Mild Pain (1-3) Hydrocodone Bitart/Acetaminophen 1 tab 02/06/20 19:21 02/09/20 23:29 Hydrocodone/Acetaminophen 5/325 Mg Tablet PO 1 tab Q4H PRN Administration Moderate Pain (4-6) Dexamethasone 6 mg 02/07/20 09:00 02/12/20 09:26 Dexamethasone 4 Mg/Ml Vial SLOW IVP 6 mg DAILY BEATA Administration Enoxaparin Sodium 40 mg 02/07/20 09:00 02/12/20 09:27 Enoxaparin Sodium 40 Mg/0.4 Ml Syringe SC 40 mg 0900 BEATA Administration Guaifenesin/Dextromethorphan 15 ml 02/06/20 19:21 02/09/20 17:56 Guaifenesin Dm 100-10/5 Ml Udcup PO 15 ml Q4H PRN Administration Cough Insulin Glargine 20 units/ 0.2 mls @ 0 mls/hr 02/11/20 21:00 02/11/20 21:47 Miscellaneous Medication SC 0.2 mls HS BEATA Administration Insulin Human Lispro 0 units 02/11/20 13:34 02/12/20 12:41 Humalog 300 Units/3 Ml Vial SC 11 unit .AGGRESSIVE SLIDING PRN Administration Aggressive Correctional Scale - Exam General Appearance: awake alert ENT: normocephalic atraumatic Neck: supple, no JVD Heart: RRR Respiratory: normal chest expansion, no tachypnea Neurological: cranial nerve grossly intact, no focal deficits Hosp A/P - Plan 02/08: 44-year-old male patient with a history of type 2 diabetes who presents on account of worsening dyspnea for about a week. Initial evaluation shows chest x-ray suggestive of Covid with Covid test eventually turning positive. He notes having had 1 previous episode of Covid. Acute hypoxic respiratory failure Secondary to Covid pneumoniarecurrence Currently stable on 5 L of oxygen Close monitoring. Pulmonology consult if deteriorates further. Pneumonia due to Covid Started on Lovenox and Decadronwe will continue Monitor ferritin, CRP daily ID following Diabetes mellitus A1c 10.9 Monitor blood glucose Currently on glargine 15 units Correctional dosing insulin for now. DVT prophylaxis Lovenox CODE STATUSfull code 02/09: The patient denies any new complaints today. He saturating well on supplemental oxygen. Continue dexamethasone and remdesivir. Continue Lovenox. Monitor LFTs daily. 02/10: The patient is currently on 3 L of oxygen. He saturating well. Continue dexamethasone and remdesivir. Increase sliding scale to aggressive and increase nightly Lantus to 20 units. 02/11: The patient is saturating well on 2 L of oxygen. Continue IV dexamethasone. He will complete his remdesivir regimen today. We will monitor his response over the next 24 to 48 hours can plan to discharge him if he remains stable.
[2020-02-12] MEDS: Insulin Glargine 20 UNITS in Pre-Filled Syringe SC SCH (21:05)
[2020-02-13 06:14] LABS: ALT (SGPT) 87 U/L (8-55); AST (SGOT) 35 U/L (5-34); Alkaline Phosphatase 63 U/L (40-110); Anion Gap 10 mmol/L (10-20); BUN (Urea Nitrogen) 18 mg/dL (8.9-20.6); Bilirubin, Total 0.9 mg/dL (0.2-1.2); Calc. Creatinine Clearance 121 mL/min (70-130); Calcium 8.3 mg/dL (7.8-10.44); Carbon Dioxide 27 mmol/L (22-29); Chloride 101 mmol/L (98-107); Estimated GFR-MDRD Greater than 90; Globulin 3.4 g/dL (2.4-3.5); Glucose 215 mg/dL (70-105); Potassium 3.9 mmol/L (3.5-5.1); Protein, Total 6.4 g/dL (6.0-8.3); Sodium 134 mmol/L (136-145)
[2020-02-13] MEDS: HumaLOG 300 UNITS/3 ML VIAL SC PRN ×4 (06:31→21:49)
[2020-02-13] MEDS: Dexamethasone 4 mg/ml Vial SLOW IVP SCH (10:18)
[2020-02-13] MEDS: Enoxaparin Sodium 40 MG/0.4 ML SYRINGE SC SCH (10:18)
--- NOTE | 2020-02-13 14:39 | PDOC.HOSPP ---
- Subjective Encounter Date: 02/13/20 - Objective Vital Signs & Weight: Vital Signs (12 hours) Temp Pulse Resp BP BP Pulse Ox 02/13/20 12:00 98.3 F 66 16 111/62 96 02/13/20 08:00 98.2 F 58 L 15 112/66 96 02/13/20 04:35 98.1 F 54 L 19 105/70 99 Weight Admit Weight 146 lb 8 oz Weight 145 lb 1.6 oz I&O: 02/12/20 02/13/20 02/14/20 06:59 06:59 06:59 Intake Total 240 2120 Output Total 275 Balance -35 2119 Result Diagrams: 02/11/20 04:56 02/13/20 04:50 Additional Labs: Accuchecks 02/13/20 02/12/20 02/12/20 10:25 20:52 17:05 POC Glucose 331 H 332 H 280 H 02/11/20 02/09/20 02/09/20 19:12 20:37 10:52 POC Glucose 285 H 343 H 333 H 02/08/20 17:12 POC Glucose 327 H Hospitalist ROS - Medication Medications: Active Medications Generic Name Dose Route Start Last Admin Trade Name Freq PRN Reason Stop Dose Admin Acetaminophen 650 mg 02/06/20 19:21 02/09/20 12:20 Acetaminophen 325 Mg Tab PO 650 mg Q4H PRN Administration Headache/Fever/Mild Pain (1-3) Hydrocodone Bitart/Acetaminophen 1 tab 02/06/20 19:21 02/09/20 23:29 Hydrocodone/Acetaminophen 5/325 Mg Tablet PO 1 tab Q4H PRN Administration Moderate Pain (4-6) Dexamethasone 6 mg 02/07/20 09:00 02/13/20 10:18 Dexamethasone 4 Mg/Ml Vial SLOW IVP 6 mg DAILY BEATA Administration Enoxaparin Sodium 40 mg 02/07/20 09:00 02/13/20 10:18 Enoxaparin Sodium 40 Mg/0.4 Ml Syringe SC 40 mg 0900 BEATA Administration Guaifenesin/Dextromethorphan 15 ml 02/06/20 19:21 02/09/20 17:56 Guaifenesin Dm 100-10/5 Ml Udcup PO 15 ml Q4H PRN Administration Cough Insulin Glargine 20 units/ 0.2 mls @ 0 mls/hr 02/11/20 21:00 02/12/20 21:05 Miscellaneous Medication SC 0.2 mls HS BEATA Administration Insulin Human Lispro 0 units 02/11/20 13:34 02/13/20 12:18 Humalog 300 Units/3 Ml Vial SC 11 unit .AGGRESSIVE SLIDING PRN Administration Aggressive Correctional Scale Insulin Human Lispro 0 units 02/12/20 19:00 02/12/20 21:05 Humalog 300 Units/3 Ml Vial SC 4 unit .BEDTIME SLIDING SC PRN Administration BEDTIME SLIDING SCALE Protocol - Exam General Appearance: awake alert Neck: supple, no JVD Heart: RRR Respiratory: no tachypnea Gastrointestinal: soft Extremities: no cyanosis, no clubbing Hosp A/P - Plan 02/08: 44-year-old male patient with a history of type 2 diabetes who presents on account of worsening dyspnea for about a week. Initial evaluation shows chest x-ray suggestive of Covid with Covid test eventually turning positive. He notes having had 1 previous episode of Covid. Acute hypoxic respiratory failure Secondary to Covid pneumoniarecurrence Currently stable on 5 L of oxygen Close monitoring. Pulmonology consult if deteriorates further. Pneumonia due to Covid Started on Lovenox and Decadronwe will continue Monitor ferritin, CRP daily ID following Diabetes mellitus A1c 10.9 Monitor blood glucose Currently on glargine 15 units Correctional dosing insulin for now. DVT prophylaxis Lovenox CODE STATUSfull code 02/09: The patient denies any new complaints today. He saturating well on supplemental oxygen. Continue dexamethasone and remdesivir. Continue Lovenox. Monitor LFTs daily. 02/10: The patient is currently on 3 L of oxygen. He saturating well. Continue dexamethasone and remdesivir. Increase sliding scale to aggressive and increase nightly Lantus to 20 units. 02/11: The patient is saturating well on 2 L of oxygen. Continue IV dexamethasone. He will complete his remdesivir regimen today. We will monitor his response over the next 24 to 48 hours can plan to discharge him if he remains stable. 02/12: The patient is requiring 1 L of oxygen today. We will give him a trial on room air and see how he does over the next 24 hours. Hopefully he can be discharged home tomorrow.
[2020-02-13] MEDS: Insulin Glargine 20 UNITS in Pre-Filled Syringe SC SCH (21:48)
[2020-02-14 05:45] LABS: ALT (SGPT) 73 U/L (8-55); AST (SGOT) 23 U/L (5-34); Alkaline Phosphatase 63 U/L (40-110); Anion Gap 13 mmol/L (10-20); BUN (Urea Nitrogen) 16 mg/dL (8.9-20.6); Bilirubin, Total 0.8 mg/dL (0.2-1.2); CRP (Inflammatory) Less than 0.50 mg/dL (= or < 0.5); Calc. Creatinine Clearance 107 mL/min (70-130); Calcium 8.4 mg/dL (7.8-10.44); Carbon Dioxide 23 mmol/L (22-29); Chloride 101 mmol/L (98-107); Estimated GFR-MDRD Greater than 90; Globulin 3.2 g/dL (2.4-3.5); Glucose 271 mg/dL (70-105); Potassium 4.3 mmol/L (3.5-5.1); Protein, Total 6.2 g/dL (6.0-8.3); Sodium 133 mmol/L (136-145)
[2020-02-14] MEDS: HumaLOG 300 UNITS/3 ML VIAL SC PRN ×2 (05:56→14:11)
[2020-02-14] MEDS: Dexamethasone 4 mg/ml Vial SLOW IVP SCH (08:47)
[2020-02-14] MEDS: Enoxaparin Sodium 40 MG/0.4 ML SYRINGE SC SCH (08:47)
--- NOTE | 2020-02-14 10:54 | PDOC.DS.DS ---
Provider - Provider Date of Admission: 02/06/20 19:24 Date of Discharge: 02/14/20 Admitting Provider: Isaiah Sanon Primary Care Physician: Unknown Course - Hospital Course Hospital Course: The patient is a 44-year-old male with no significant past medical history of diabetes mellitus who presented to the hospital with complaints of shortness of breath and cough for over a week. He was diagnosed with acute respiratory failure with hypoxia due to COVID-19 and was managed with supplemental oxygen and corticosteroids. He also completed full course of remdesivir. His condition gradually improved until his symptoms completely resolved and he was saturating well on room air on the day of discharge. Resuscitation Status: 02/06/20 19:21 Resuscitation Status Routine Resuscitation Status: FULL: Full Resuscitation - Labs Lab Results: 02/11/20 04:56 02/14/20 05:08 Abnormal Lab Results - Last 48 hrs 02/13/20 04:50: Sodium 134 L, AST 35 H, ALT 87 H, Albumin 3.0 L, Albumin/Globulin Ratio 0.9 L 02/13/20 04:50: C-Reactive Protein 0.83 H 02/13/20 04:50: D-Dimer Less than 0.27 L 02/13/20 04:50: Ferritin 517.33 H 02/14/20 05:07: D-Dimer 0.49 H 02/14/20 05:07: Ferritin 502.30 H 02/14/20 05:08: Sodium 133 L, ALT 73 H, Albumin 3.0 L, Albumin/Globulin Ratio 0.9 L Microbiology - Entire Visit 02/06/20 20:41 Venous blood - Left Hand Blood Culture - Final NO GROWTH IN 5 DAYS 02/06/20 20:41 Venous blood - Right Arm Blood Culture - Final NO GROWTH IN 5 DAYS 02/07/20 03:37 Nasal swab Influenza Types A,B Direct EIA - Final - Physical Exam Vitals: Vital Signs (12 hours) Temp Pulse Resp BP BP Pulse Ox 02/14/20 08:47 98.4 F 81 21 H 108/60 100 02/14/20 03:38 97.7 F 58 L 17 107/66 100 02/14/20 00:00 98.0 F 57 L 19 111/68 100 Weight Admit Weight 146 lb 8 oz Weight 145 lb 1.6 oz Physical Exam: The patient was seen and examined on the day of discharge. Problem - Problem (1) Pneumonia due to COVID-19 virus Code(s): U07.1 - COVID-19; J12.89 - OTHER VIRAL PNEUMONIA Status: Acute (2) Respiratory failure with hypoxia Code(s): J96.91 - RESPIRATORY FAILURE, UNSPECIFIED WITH HYPOXIA Status: Acute Qualifiers: Chronicity: acute Qualified Code(s): J96.01 - Acute respiratory failure with hypoxia (3) Diabetes Code(s): E11.9 - TYPE 2 DIABETES MELLITUS WITHOUT COMPLICATIONS Status: Chronic Qualifiers: Diabetes mellitus type: type 2 Diabetes mellitus residential insulin use: with long term acute care registered nurse use - Time spent with Patient (mins): 32 Plan - Discharge Medications Home Medications: Medication Instructions Recorded Confirmed Type Benzonatate 100 mg PO TID PRN 02/06/20 02/06/20 History glipiZIDE [Glipizide] 5 mg PO DAILY 02/06/20 02/06/20 History sitaGLIPtin Phos/metFORMIN HCl 1 tablet PO HS 02/06/20 02/06/20 History [Janumet XR] Allergies: No Known Allergies Allergy (Verified 02/06/20 22:36) - Follow up Plan Referrals: Unknown,Unknown [Primary Care Provider] - Disposition: HOME Quality - Care Measures CORE MEASURES:: N/A
[2020-02-14 11:07] VITALS: BP 104/59; TEMP 98
== END 2020-02-14 19:12 | disposition home or self-care (01) | DRG 177 ==
LOC: ERS 17:10 → 2SW 19:24
PROVIDERS: ADMIT Internal Medicine; ATTEND Internal Medicine
PROC: XW033E5 Introduction of Remdesivir Anti-infective into Peripheral Vein, Percutaneous Approach, New Technology Group 5 (ICD-10-PCS; principal; 2020-02-04)
PROC: 8E0ZXY6 Isolation (ICD-10-PCS; 2020-02-06)
DX: U07.1 COVID-19 (principal); J96.01 Acute respiratory failure with hypoxia; J12.89 Other viral pneumonia; E11.65 Type 2 diabetes mellitus with hyperglycemia; Z79.899 Other long term (current) drug therapy; Z79.84 Long term (current) use of oral hypoglycemic drugs
CPT/HCPCS: 36415; 36416; 71045; 80053; 82728; 83036; 83880; 84145; 84484; 85007; 85025; 85027; 85379; 86140; 87040; 87804; 93005; 96374; J0456; J0696; J1100; J1650; J1815; J3490; J7050; U0002

== ENCOUNTER 2022-09-18 15:30 | Outpatient (CLI) | payer SELFPAY | END 2022-09-18 15:31 | disposition home or self-care (01) | LOC: RAD 15:30 | PROVIDERS: ATTEND Urology | DX: N20.1 Calculus of ureter (principal); N28.89 Other specified disorders of kidney and ureter | CPT/HCPCS: 74018 ==

== ENCOUNTER 2023-05-13 09:05 | Outpatient (CLI) | payer OTHER | END 2023-05-13 09:06 | disposition home or self-care (01) | LOC: RAD 09:05 | PROVIDERS: ATTEND Orthopaedic Surgery | DX: N20.0 Calculus of kidney (principal) | CPT/HCPCS: 74018 ==